=== PATIENT | female | born 1930 | race Caucasian/White ===

== ENCOUNTER 2016-11-02 20:13 | Observation (INO) | payer MEDICARE, BC ==
[~2016-11-02] VITALS: Ht 152.4 cm; Wt 58.8 kg
[2016-11-02] VITALS (36 sets, daily range): BP systolic 115; BP diastolic 50; PULSE 92; TEMP 98.4; O2SAT 88–94
[~2016-11-02 20:13] MED LIST: ACTIGALL 300MG300 MG PO; BONIVA PO; CALCIUM 600 + V1 TA1 PO; CALTRATE 600 +1 TAB PO; CYANOCOBAL1000 MCG/1 SQ; DIOVAN HCT 12.51 TA2 PO; DIOVAN80 M1 PO; ENTOCORT EC3 MG PO; FERROUS SU325 MG/TAB PO; FORTEO250 MCG/ML SC; ICAPS TABLET1 EACH PO; IMODIUM 2MG CAPS2 MG PO; LEVAQUIN 5500 MG/TA1 PO; LEVOTHYROXIN0.075 MG PO; MASON NATURAL2000 IU PO; MEDROL 4MG DOSPA4 MG PO; MERCAPTOPURINE50 MG PO; MULTIVITAMIN1 CTB PO; MVI PO; NORCO 325 MG-51 TAB PO; PRENATAL1 TA1 PO; PROBIOTIC FORMU1 CAP PO; SYNTHROID0.075 MG/T PO; TIMOLOL OPHTHALMIC OU; TYLENOL PM EXTR1 TA1 PO; URSO250 MG PO; VITAMIN B-1000 MCG/T PO; VITAMIN D 50,1.25 MG PO; VITAMIN D PO; VITAMIN D1000 IU PO; VITRON-C PO; [UNRECOGNIZED DRUG - OTHER] PO
[2016-11-02 20:40] LABS: BASO # 0.1 (0.0-0.2); EOS # 0.1 (0.0-0.7); GRAN # 8.2 (1.4-6.5); GRAN % 78.2 % (42.2-75.2); LYMPH # 1.4 (1.2-3.4); LYMPH % 12.9 % (20.0-51.0); MEAN CELL VOLUME 80 fl (80.0-100.0); MEAN CORPUSCULAR HGB CONC 32 g/dl (33.0-37.0); MEAN PLATELET VOLUME 9.1 fl (7.4-10.4); MONO # 0.7 (0.1-0.6); MONO % 6.4 % (1.7-9.3); PLATELET COUNT 478 K/mm3 (130-400); REDCELL DISTRIBUTION WIDTH-CV 14.3 % (11.5-14.5); WHITE BLOOD COUNT 10.5 K/mm3 (4.8-10.8)
[2016-11-02 20:49] LABS: ADJUSTED CALCIUM 9.8 mg/dL (8.4-10.2); ALBUMIN 3.3 gm/dL (3.5-5.0); BILIRUBIN,TOTAL 0.8 mg/dL (0.0-1.0); CALCIUM 9.2 mg/dL (8.4-10.2); CREATININE, serum 0.96 mg/dL (0.52-1.25); HEMATOCRIT 29.6 % (37.0-47.0); HEMOGLOBIN 9.5 g/dl (12.5-16.0); MEAN CORPUSCULAR HEMOGLOBIN 26 pg (27.0-31.0); POTASSIUM 3.8 mmol/L (3.4-5.0); TOTAL PROTEIN 6.7 gm/dL (6.4-8.2)
[2016-11-02 21:14] LABS: PH 6 (5-8); SQUAMOUS EPITHELIAL 0-2 /hpf; URINE APPEARANCE Hazy; URINE BACTERIA None Seen /hpf; URINE BILIRUBIN Negative (NEGATIVE); URINE BLOOD 1+ (NEGATIVE); URINE COLOR Yellow; URINE GLUCOSE Negative (NEGATIVE); URINE KETONE Trace (NEGATIVE); URINE UROBILINOGEN Negative (NEGATIVE); URINE WBC 0-2 /hpf
[2016-11-02] MEDS ORDERED: PURINETHOL 50MG50 MG PO (22:02)
[2016-11-02] MEDS ORDERED: B COMPLEX & B121 TAB PO (22:03)
[2016-11-02] MEDS ORDERED: ICAPS AREDS FO1 EACH PO (22:03)
[2016-11-02] MEDS ORDERED: DIOVAN 40MG40 MG PO (22:09)
[2016-11-03] VITALS (581 sets, daily range): BP systolic 103–134; BP diastolic 51–62; PULSE 71–84; TEMP 96.7–98.5; O2SAT 62–100
[2016-11-03 06:15] LABS: CALCIUM 8.5 mg/dL (8.4-10.2); CREATININE, serum 0.79 mg/dL (0.52-1.25); POTASSIUM 3.6 mmol/L (3.4-5.0)
[2017-01-09] MEDS ORDERED: TIMOLOL MALEATE5 M3 OU (14:49)
[2017-01-09] MEDS ORDERED: TIMOPTIC 0.25%-5 OU (14:49)
[2017-01-09] MEDS ORDERED: ENTOCORT EC3 MG PO (15:12)
[2017-02-06] MEDS ORDERED: CALTRATE 600 +1 TAB PO (15:00)
[2017-03-06] MEDS ORDERED: CARAFATE S1 GM/10 ML PO (13:44)
== END 2016-11-03 17:10 | disposition home or self-care (01) ==
LOC: COL.ER 20:13 → IMCU 22:24 → MEDICAL 11-03 14:14
PROVIDERS: Emergency Medicine; Nurse Practitioner Family
DX: E87.1 Hypo-osmolality and hyponatremia (principal); E86.0 Dehydration; N39.0 Urinary tract infection, site not specified; D47.3 Essential (hemorrhagic) thrombocythemia; I95.9 Hypotension, unspecified; K50.90 Crohn's disease, unspecified, without complications; E03.9 Hypothyroidism, unspecified; Z85.42 Personal history of malignant neoplasm of other parts of uterus
CPT/HCPCS: G0378; J7030; Q9967

== ENCOUNTER 2016-11-12 13:00 | Outpatient (RCR) | payer MEDICARE, BC ==
[2016-09-09 13:18] LABS: BASO # 0.1 (0.0-0.2); BASO % 1.2 % (0.0-2.0); EOS # 0.2 (0.0-0.7); EOS % 3.1 % (0-4.0); GRAN # 3.8 (1.4-6.5); HEMATOCRIT 31.4 % (37.0-47.0); HEMOGLOBIN 9.8 g/dl (12.5-16.0); LYMPH # 1.5 (1.2-3.4); MEAN CELL VOLUME 89 fl (80.0-100.0); MEAN CORPUSCULAR HEMOGLOBIN 28 pg (27.0-31.0); MEAN CORPUSCULAR HGB CONC 31 g/dl (33.0-37.0); MEAN PLATELET VOLUME 9.3 fl (7.4-10.4); MONO # 0.5 (0.1-0.6); MONO % 8.4 % (1.7-9.3); PLATELET COUNT 345 K/mm3 (130-400); RED BLOOD COUNT 3.53 M/mm3 (4.10-5.30); REDCELL DISTRIBUTION WIDTH-CV 14.3 % (11.5-14.5); WHITE BLOOD COUNT 6.1 K/mm3 (4.8-10.8)
[2016-09-09 13:27] LABS: ALBUMIN 3.3 gm/dL (3.5-5.0); BILIRUBIN,TOTAL 0.7 mg/dL (0.0-1.0); CALCIUM 9.4 mg/dL (8.4-10.2); CREATININE, serum 0.91 mg/dL (0.52-1.25); POTASSIUM 3.9 mmol/L (3.4-5.0); TOTAL PROTEIN 6.1 gm/dL (6.4-8.2)
[2016-09-09 13:37] VITALS: BP 11/57; PULSE 72; TEMP 97.6
[~2016-11-12] VITALS: Ht 154.9 cm; Wt 55.0 kg
[~2016-11-12 13:00] MED LIST changes: +B COMPLEX & B121 TAB PO; +DIOVAN 40MG40 MG PO; +ICAPS AREDS FO1 EACH PO; +PURINETHOL 50MG50 MG PO
[2016-11-12 13:32] LABS: BASO # 0.1 (0.0-0.2); BASO % 1.1 % (0.0-2.0); EOS # 0.5 (0.0-0.7); GRAN # 4.3 (1.4-6.5); GRAN % 67.1 % (42.2-75.2); LYMPH % 16.1 % (20.0-51.0); MEAN CELL VOLUME 82 fl (80.0-100.0); MEAN CORPUSCULAR HGB CONC 30 g/dl (33.0-37.0); MEAN PLATELET VOLUME 8.7 fl (7.4-10.4); MONO # 0.5 (0.1-0.6); MONO % 7.4 % (1.7-9.3); PLATELET COUNT 529 K/mm3 (130-400); RED BLOOD COUNT 3.67 M/mm3 (4.10-5.30); REDCELL DISTRIBUTION WIDTH-CV 15.6 % (11.5-14.5); WHITE BLOOD COUNT 6.4 K/mm3 (4.8-10.8)
[2016-11-12 13:33] LABS: HEMATOCRIT 29.9 % (37.0-47.0); HEMOGLOBIN 9.1 g/dl (12.5-16.0); MEAN CORPUSCULAR HEMOGLOBIN 25 pg (27.0-31.0)
[2016-11-12 13:55] LABS: ADJUSTED CALCIUM 10.2 mg/dL (8.4-10.2); ALBUMIN 3.2 gm/dL (3.5-5.0); BILIRUBIN,TOTAL 0.5 mg/dL (0.0-1.0); CALCIUM 9.6 mg/dL (8.4-10.2); CREATININE, serum 0.86 mg/dL (0.52-1.25); TOTAL PROTEIN 6.5 gm/dL (6.4-8.2)
[2016-11-12 14:21] VITALS: BP 124/60; PULSE 91; TEMP 98.2
[2017-01-09] MEDS ORDERED: TIMOPTIC 0.25%-5 OU (14:49)
[2017-01-09] MEDS ORDERED: TIMOLOL MALEATE5 M3 OU (14:49)
[2017-01-09] MEDS ORDERED: ENTOCORT EC3 MG PO (15:12)
[2017-02-06] MEDS ORDERED: CALTRATE 600 +1 TAB PO (15:00)
[2017-03-06] MEDS ORDERED: CARAFATE S1 GM/10 ML PO (13:44)
== END 2016-12-08 | disposition home or self-care (01) ==
LOC: EUO
PROVIDERS: Family Medicine; Internal Medicine
DX: K50.118 Crohn's disease of large intestine with other complication (principal)
CPT/HCPCS: J2920; J3380; J7050

== ENCOUNTER → 2017-01-24 | Outpatient (CLI) | payer MEDICARE, BC ==
[~2017-01-24] MED LIST changes: +CARAFATE S1 GM/10 ML PO; +PROTONIX20 MG PO; +TIMOLOL MALEATE5 M3 OU; +TIMOPTIC 0.25%-5 OU
== END ==
LOC: COL.RAD 07:20
DX: K76.89 Other specified diseases of liver (principal); R10.84 Generalized abdominal pain

== ENCOUNTER 2017-04-03 13:00 | Outpatient (RCR) | payer MEDICARE, BC ==
[2017-01-09 14:43] LABS: BASO # 0.1 (0.0-0.2); BASO % 1.2 % (0.0-2.0); EOS # 0.4 (0.0-0.7); EOS % 3.9 % (0-4.0); GRAN # 7.4 (1.4-6.5); GRAN % 77.9 % (42.2-75.2); HEMOGLOBIN 12.9 g/dl (12.5-16.0); LYMPH # 0.9 (1.2-3.4); LYMPH % 9.2 % (20.0-51.0); MEAN CELL VOLUME 86 fl (80.0-100.0); MEAN CORPUSCULAR HEMOGLOBIN 28 pg (27.0-31.0); MEAN CORPUSCULAR HGB CONC 32 g/dl (33.0-37.0); MEAN PLATELET VOLUME 9.6 fl (7.4-10.4); MONO # 0.7 (0.1-0.6); MONO % 7.6 % (1.7-9.3); PLATELET COUNT 316 K/mm3 (130-400); RED BLOOD COUNT 4.65 M/mm3 (4.10-5.30); REDCELL DISTRIBUTION WIDTH-CV 20.6 % (11.5-14.5); WHITE BLOOD COUNT 9.5 K/mm3 (4.8-10.8)
[2017-01-09 14:53] LABS: ADJUSTED CALCIUM 8.4 mg/dL (8.4-10.2); ALBUMIN 3.9 gm/dL (3.5-5.0); AMYLASE 59 U/L (30-110); BILIRUBIN,TOTAL 0.7 mg/dL (0.0-1.0); CALCIUM 8.3 mg/dL (8.4-10.2); CREATININE, serum 0.67 mg/dL (0.52-1.25); LIPASE 48 U/L (23-300); POTASSIUM 3.7 mmol/L (3.4-5.0); TOTAL PROTEIN 7.1 gm/dL (6.4-8.2)
[2017-01-09 15:45] VITALS: BP 134/59; PULSE 68; TEMP 98.2
[2017-01-09 16:20] VITALS: BP 151/56; PULSE 69; TEMP 97.8
[2017-02-06 14:30] VITALS: BP 123/51; PULSE 64; TEMP 98.3
[2017-02-06 14:49] LABS: BASO # 0.1 (0.0-0.2); BASO % 1.7 % (0.0-2.0); EOS # 0.4 (0.0-0.7); EOS % 6.3 % (0-4.0); GRAN # 3.8 (1.4-6.5); GRAN % 62.8 % (42.2-75.2); HEMATOCRIT 39.9 % (37.0-47.0); LYMPH # 1.2 (1.2-3.4); LYMPH % 19.2 % (20.0-51.0); MEAN CELL VOLUME 87 fl (80.0-100.0); MEAN CORPUSCULAR HEMOGLOBIN 28 pg (27.0-31.0); MEAN CORPUSCULAR HGB CONC 33 g/dl (33.0-37.0); MEAN PLATELET VOLUME 9.8 fl (7.4-10.4); MONO # 0.6 (0.1-0.6); MONO % 9.8 % (1.7-9.3); PLATELET COUNT 319 K/mm3 (130-400); RED BLOOD COUNT 4.59 M/mm3 (4.10-5.30); REDCELL DISTRIBUTION WIDTH-CV 18.9 % (11.5-14.5); WHITE BLOOD COUNT 6.1 K/mm3 (4.8-10.8)
[2017-02-06 14:58] LABS: ADJUSTED CALCIUM 8.9 mg/dL (8.4-10.2); ALBUMIN 3.6 gm/dL (3.5-5.0); BILIRUBIN,TOTAL 0.7 mg/dL (0.0-1.0); CALCIUM 8.6 mg/dL (8.4-10.2); CREATININE, serum 0.68 mg/dL (0.52-1.25); POTASSIUM 3.8 mmol/L (3.4-5.0); TOTAL PROTEIN 6.3 gm/dL (6.4-8.2)
[2017-03-06 13:32] LABS: BASO # 0.1 (0.0-0.2); BASO % 1.8 % (0.0-2.0); EOS # 0.3 (0.0-0.7); EOS % 4.9 % (0-4.0); GRAN # 3.8 (1.4-6.5); GRAN % 62.4 % (42.2-75.2); HEMATOCRIT 38.8 % (37.0-47.0); HEMOGLOBIN 12.6 g/dl (12.5-16.0); LYMPH # 1.3 (1.2-3.4); LYMPH % 21.4 % (20.0-51.0); MEAN CELL VOLUME 87 fl (80.0-100.0); MEAN CORPUSCULAR HEMOGLOBIN 28 pg (27.0-31.0); MEAN CORPUSCULAR HGB CONC 33 g/dl (33.0-37.0); MEAN PLATELET VOLUME 9.5 fl (7.4-10.4); MONO # 0.6 (0.1-0.6); MONO % 9.2 % (1.7-9.3); PLATELET COUNT 305 K/mm3 (130-400); RED BLOOD COUNT 4.44 M/mm3 (4.10-5.30); REDCELL DISTRIBUTION WIDTH-CV 15.6 % (11.5-14.5); WHITE BLOOD COUNT 6.1 K/mm3 (4.8-10.8)
[2017-03-06 14:18] LABS: ADJUSTED CALCIUM 9.5 mg/dL (8.4-10.2); ALBUMIN 3.7 gm/dL (3.5-5.0); BILIRUBIN,TOTAL 0.7 mg/dL (0.0-1.0); CALCIUM 9.3 mg/dL (8.4-10.2); CREATININE, serum 0.67 mg/dL (0.52-1.25); POTASSIUM 4.1 mmol/L (3.4-5.0); TOTAL PROTEIN 6.3 gm/dL (6.4-8.2)
[2017-03-06 14:48] VITALS: BP 128/54; PULSE 65; TEMP 98.4
[~2017-04-03] VITALS: Ht 154.9 cm; Wt 53.0 kg
[~2017-04-03 13:00] MED LIST changes: -PROTONIX20 MG PO
[2017-04-03 13:20] VITALS: BP 131/54; PULSE 71; TEMP 98.4
[2017-04-03 13:49] LABS: BASO # 0.1 (0.0-0.2); BASO % 1.2 % (0.0-2.0); EOS # 0.4 (0.0-0.7); EOS % 5.9 % (0-4.0); GRAN # 4.1 (1.4-6.5); GRAN % 63.5 % (42.2-75.2); LYMPH # 1.2 (1.2-3.4); LYMPH % 19.3 % (20.0-51.0); MEAN CELL VOLUME 89 fl (80.0-100.0); MEAN CORPUSCULAR HEMOGLOBIN 29 pg (27.0-31.0); MEAN CORPUSCULAR HGB CONC 32 g/dl (33.0-37.0); MEAN PLATELET VOLUME 9.8 fl (7.4-10.4); MONO # 0.6 (0.1-0.6); MONO % 9.8 % (1.7-9.3); PLATELET COUNT 310 K/mm3 (130-400); RED BLOOD COUNT 4.15 M/mm3 (4.10-5.30); REDCELL DISTRIBUTION WIDTH-CV 13.5 % (11.5-14.5); WHITE BLOOD COUNT 6.4 K/mm3 (4.8-10.8)
[2017-04-03 13:51] LABS: HEMOGLOBIN 11.9 g/dl (12.5-16.0)
[2017-04-03 14:00] LABS: ADJUSTED CALCIUM 9.8 mg/dL (8.4-10.2); ALBUMIN 3.4 gm/dL (3.5-5.0); BILIRUBIN,TOTAL 0.9 mg/dL (0.0-1.0); CALCIUM 9.3 mg/dL (8.4-10.2); CREATININE, serum 0.73 mg/dL (0.52-1.25); POTASSIUM 4.1 mmol/L (3.4-5.0); TOTAL PROTEIN 5.9 gm/dL (6.4-8.2)
== END 2017-04-03 15:30 | disposition home or self-care (01) ==
LOC: EUO 13:00
PROVIDERS: Family Medicine
DX: R10.13 Epigastric pain (principal)
CPT/HCPCS: J2920; J3380; J7050

== ENCOUNTER 2017-04-30 13:59 | Outpatient (CLI) | payer MEDICARE, BC ==
[~2017-04-30] VITALS: Ht 154.9 cm; Wt 54.0 kg
[2017-04-30 13:11] VITALS: BP 134/64; PULSE 71; TEMP 97.4
[2017-04-30 13:27] LABS: BASO # 0.1 (0.0-0.2); BASO % 1.4 % (0.0-2.0); EOS # 0.5 (0.0-0.7); GRAN # 3.6 (1.4-6.5); GRAN % 61.2 % (42.2-75.2); HEMATOCRIT 36.1 % (37.0-47.0); HEMOGLOBIN 11.7 g/dl (12.5-16.0); LYMPH # 1.2 (1.2-3.4); MEAN CELL VOLUME 88 fl (80.0-100.0); MEAN CORPUSCULAR HEMOGLOBIN 28 pg (27.0-31.0); MEAN CORPUSCULAR HGB CONC 32 g/dl (33.0-37.0); MONO # 0.5 (0.1-0.6); MONO % 9.2 % (1.7-9.3); PLATELET COUNT 290 K/mm3 (130-400); RED BLOOD COUNT 4.11 M/mm3 (4.10-5.30); REDCELL DISTRIBUTION WIDTH-CV 13.2 % (11.5-14.5); WHITE BLOOD COUNT 5.8 K/mm3 (4.8-10.8)
[2017-04-30 13:36] LABS: ADJUSTED CALCIUM 10.3 mg/dL (8.4-10.2); ALBUMIN 3.4 gm/dL (3.5-5.0); BILIRUBIN,TOTAL 0.6 mg/dL (0.0-1.0); CALCIUM 9.8 mg/dL (8.4-10.2); CREATININE, serum 0.78 mg/dL (0.52-1.25); POTASSIUM 4.1 mmol/L (3.4-5.0); TOTAL PROTEIN 6.2 gm/dL (6.4-8.2)
== END 2017-04-30 16:00 | disposition home or self-care (01) ==
LOC: EUO 13:59
PROVIDERS: Family Medicine
DX: K50.90 Crohn's disease, unspecified, without complications (principal)
CPT/HCPCS: J2920; J3380; J7050

== ENCOUNTER 2017-05-29 13:56 | Outpatient (CLI) | payer MEDICARE, BC ==
[~2017-05-29] VITALS: Ht 154.9 cm; Wt 53.6 kg
[2017-05-29 14:36] LABS: HEMATOCRIT 38.2 % (37.0-47.0); HEMOGLOBIN 12.4 g/dl (12.5-16.0); MEAN CELL VOLUME 87 fl (80.0-100.0); MEAN CORPUSCULAR HEMOGLOBIN 28 pg (27.0-31.0); MEAN CORPUSCULAR HGB CONC 33 g/dl (33.0-37.0); MEAN PLATELET VOLUME 10.2 fl (7.4-10.4); PLATELET COUNT 271 K/mm3 (130-400); RED BLOOD COUNT 4.37 M/mm3 (4.10-5.30); REDCELL DISTRIBUTION WIDTH-CV 13.7 % (11.5-14.5); WHITE BLOOD COUNT 6.1 K/mm3 (4.8-10.8)
[2017-05-29 14:47] LABS: ADJUSTED CALCIUM 9.8 mg/dL (8.4-10.2); ALBUMIN 3.5 gm/dL (3.5-5.0); BILIRUBIN,TOTAL 0.7 mg/dL (0.0-1.0); CALCIUM 9.4 mg/dL (8.4-10.2); CREATININE, serum 0.76 mg/dL (0.52-1.25); POTASSIUM 4.3 mmol/L (3.4-5.0); TOTAL PROTEIN 6.3 gm/dL (6.4-8.2)
[2017-05-29 15:30] VITALS: BP 120/49; PULSE 56; TEMP 98.2
== END 2017-05-29 17:11 | disposition home or self-care (01) ==
LOC: EUO 13:56
PROVIDERS: Family Medicine
DX: K50.90 Crohn's disease, unspecified, without complications (principal); Z79.899 Other long term (current) drug therapy
CPT/HCPCS: J2920; J3380; J7050

== ENCOUNTER → 2017-06-02 | Outpatient (CLI) | payer MEDICARE, BC ==
[~2017-06-02] MED LIST changes: +PROTONIX20 MG PO
== END ==
LOC: MC.RAD 14:20
DX: Z12.31 Encounter for screening mammogram for malignant neoplasm of breast (principal); Z98.890 Other specified postprocedural states

== ENCOUNTER 2017-06-26 13:57 | Outpatient (CLI) | payer MEDICARE, BC ==
[~2017-06-26] VITALS: Ht 154.9 cm; Wt 55.5 kg
[~2017-06-26 13:57] MED LIST changes: -PROTONIX20 MG PO
[2017-06-26 14:55] LABS: ALBUMIN 3.4 gm/dL (3.5-5.0); BILIRUBIN,TOTAL 0.8 mg/dL (0.0-1.0); CREATININE, serum 0.82 mg/dL (0.52-1.25); TOTAL PROTEIN 6.1 gm/dL (6.4-8.2)
[2017-06-26 15:00] LABS: BASO # 0.1 (0.0-0.2); BASO % 1.4 % (0.0-2.0); EOS # 0.5 (0.0-0.7); EOS % 8.4 % (0-4.0); GRAN # 3.1 (1.4-6.5); GRAN % 53.6 % (42.2-75.2); LYMPH # 1.6 (1.2-3.4); LYMPH % 26.7 % (20.0-51.0); MEAN CELL VOLUME 87 fl (80.0-100.0); MEAN CORPUSCULAR HGB CONC 32 g/dl (33.0-37.0); MEAN PLATELET VOLUME 10.2 fl (7.4-10.4); MONO # 0.6 (0.1-0.6); MONO % 9.7 % (1.7-9.3); PLATELET COUNT 302 K/mm3 (130-400); RED BLOOD COUNT 4.18 M/mm3 (4.10-5.30); WHITE BLOOD COUNT 5.9 K/mm3 (4.8-10.8)
[2017-06-26 15:05] LABS: HEMATOCRIT 36.3 % (37.0-47.0); HEMOGLOBIN 11.7 g/dl (12.5-16.0); MEAN CORPUSCULAR HEMOGLOBIN 28 pg (27.0-31.0)
[2017-06-26 15:08] LABS: ADJUSTED CALCIUM 9.8 mg/dL (8.4-10.2); CALCIUM 9.3 mg/dL (8.4-10.2)
[2017-06-26] MEDS ORDERED: PROTONIX20 MG PO (15:15)
[2017-06-26 15:46] VITALS: BP 129/50; PULSE 61; TEMP 97.2
== END 2017-06-26 16:50 | disposition home or self-care (01) ==
LOC: EUO 13:57
PROVIDERS: Family Medicine
DX: K50.90 Crohn's disease, unspecified, without complications (principal); Z79.899 Other long term (current) drug therapy
CPT/HCPCS: J2920; J3380; J7050

== ENCOUNTER → 2017-07-04 | Outpatient (CLI) | payer MEDICARE, BC ==
[~2017-07-04] MED LIST changes: +PROTONIX20 MG PO
== END ==
LOC: COL.RAD 08:06
DX: K82.8 Other specified diseases of gallbladder (principal)
CPT/HCPCS: A9537

== ENCOUNTER 2017-07-23 14:18 | Outpatient (CLI) | payer MEDICARE, BC ==
[~2017-07-23] VITALS: Ht 154.9 cm; Wt 56.0 kg
[2017-07-23 15:05] LABS: BASO # 0.1 (0.0-0.2); BASO % 1.5 % (0.0-2.0); EOS # 0.5 (0.0-0.7); EOS % 7.7 % (0-4.0); GRAN # 3.4 (1.4-6.5); GRAN % 56.9 % (42.2-75.2); HEMATOCRIT 38.5 % (37.0-47.0); HEMOGLOBIN 12.5 g/dl (12.5-16.0); LYMPH # 1.5 (1.2-3.4); LYMPH % 24.3 % (20.0-51.0); MEAN CELL VOLUME 88 fl (80.0-100.0); MEAN CORPUSCULAR HEMOGLOBIN 29 pg (27.0-31.0); MEAN CORPUSCULAR HGB CONC 33 g/dl (33.0-37.0); MEAN PLATELET VOLUME 10.1 fl (7.4-10.4); MONO # 0.6 (0.1-0.6); MONO % 9.4 % (1.7-9.3); PLATELET COUNT 292 K/mm3 (130-400); RED BLOOD COUNT 4.38 M/mm3 (4.10-5.30); REDCELL DISTRIBUTION WIDTH-CV 14.1 % (11.5-14.5)
[2017-07-23 15:14] LABS: ADJUSTED CALCIUM 9.5 mg/dL (8.4-10.2); ALBUMIN 3.7 gm/dL (3.5-5.0); BILIRUBIN,TOTAL 0.5 mg/dL (0.0-1.0); CALCIUM 9.3 mg/dL (8.4-10.2); CREATININE, serum 0.82 mg/dL (0.52-1.25); POTASSIUM 4.2 mmol/L (3.4-5.0); TOTAL PROTEIN 6.6 gm/dL (6.4-8.2)
[2017-07-23 15:55] VITALS: BP 142/60; PULSE 63; TEMP 98.1
== END 2017-07-23 16:59 | disposition home or self-care (01) ==
LOC: EUO 14:18
PROVIDERS: Family Medicine
DX: K50.90 Crohn's disease, unspecified, without complications (principal); Z79.899 Other long term (current) drug therapy
CPT/HCPCS: J2920; J3380; J7050

== ENCOUNTER 2017-08-20 14:03 | Outpatient (CLI) | payer MEDICARE, BC ==
[~2017-08-20] VITALS: Ht 154.9 cm; Wt 56.3 kg
[2017-08-20 14:26] LABS: BASO # 0.1 (0.0-0.2); BASO % 1.6 % (0.0-2.0); EOS # 0.4 (0.0-0.7); EOS % 5.2 % (0-4.0); GRAN # 4.2 (1.4-6.5); GRAN % 61.3 % (42.2-75.2); HEMATOCRIT 39.5 % (37.0-47.0); HEMOGLOBIN 12.6 g/dl (12.5-16.0); LYMPH # 1.6 (1.2-3.4); LYMPH % 23.4 % (20.0-51.0); MEAN CELL VOLUME 88 fl (80.0-100.0); MEAN CORPUSCULAR HEMOGLOBIN 28 pg (27.0-31.0); MEAN CORPUSCULAR HGB CONC 32 g/dl (33.0-37.0); MONO # 0.6 (0.1-0.6); MONO % 8.4 % (1.7-9.3); PLATELET COUNT 345 K/mm3 (130-400); RED BLOOD COUNT 4.48 M/mm3 (4.10-5.30); WHITE BLOOD COUNT 6.8 K/mm3 (4.8-10.8)
[2017-08-20 14:34] LABS: ADJUSTED CALCIUM 10.1 mg/dL (8.4-10.2); ALBUMIN 3.7 gm/dL (3.5-5.0); BILIRUBIN,TOTAL 0.6 mg/dL (0.0-1.0); CALCIUM 9.9 mg/dL (8.4-10.2); CREATININE, serum 0.86 mg/dL (0.52-1.25); POTASSIUM 4.4 mmol/L (3.4-5.0); TOTAL PROTEIN 6.6 gm/dL (6.4-8.2)
[2017-08-20 15:15] VITALS: BP 131/65; PULSE 65; TEMP 98.3
== END 2017-08-20 17:00 | disposition home or self-care (01) ==
LOC: EUO 14:03
PROVIDERS: Family Medicine
DX: K50.90 Crohn's disease, unspecified, without complications (principal); Z79.899 Other long term (current) drug therapy
CPT/HCPCS: J2920; J3380; J7050

== ENCOUNTER → 2017-09-17 | Outpatient (CLI) | payer MEDICARE, BC ==
[~2017-09-17] VITALS: Ht 154.9 cm; Wt 56.3 kg
[2017-09-17 14:36] LABS: BASO # 0.1 (0.0-0.2); BASO % 1.5 % (0.0-2.0); EOS # 0.4 (0.0-0.7); EOS % 5.4 % (0-4.0); GRAN # 4.4 (1.4-6.5); GRAN % 63.9 % (42.2-75.2); HEMATOCRIT 37.4 % (37.0-47.0); HEMOGLOBIN 12.2 g/dl (12.5-16.0); LYMPH # 1.5 (1.2-3.4); LYMPH % 21.4 % (20.0-51.0); MEAN CELL VOLUME 89 fl (80.0-100.0); MEAN CORPUSCULAR HEMOGLOBIN 29 pg (27.0-31.0); MEAN CORPUSCULAR HGB CONC 33 g/dl (33.0-37.0); MEAN PLATELET VOLUME 9.7 fl (7.4-10.4); MONO # 0.5 (0.1-0.6); MONO % 7.7 % (1.7-9.3); PLATELET COUNT 333 K/mm3 (130-400); RED BLOOD COUNT 4.21 M/mm3 (4.10-5.30); WHITE BLOOD COUNT 6.9 K/mm3 (4.8-10.8)
[2017-09-17 15:01] LABS: ADJUSTED CALCIUM 10.1 mg/dL (8.4-10.2); ALBUMIN 3.7 gm/dL (3.5-5.0); BILIRUBIN,TOTAL 0.6 mg/dL (0.0-1.0); CALCIUM 9.9 mg/dL (8.4-10.2); CREATININE, serum 0.8 mg/dL (0.52-1.25); POTASSIUM 4.2 mmol/L (3.4-5.0); TOTAL PROTEIN 6.5 gm/dL (6.4-8.2)
[2017-09-17 15:50] VITALS: BP 131/57; PULSE 66; TEMP 99.4
== END ==
LOC: EUO 13:56
PROVIDERS: Family Medicine
DX: K50.118 Crohn's disease of large intestine with other complication (principal); Z79.899 Other long term (current) drug therapy
CPT/HCPCS: J2920; J3380; J7050

== ENCOUNTER 2017-10-15 14:01 | Outpatient (CLI) | payer MEDICARE, BC ==
[~2017-10-15] VITALS: Ht 154.9 cm; Wt 56.0 kg
[2017-10-15 14:17] LABS: ADD PATHOLOGY DIFF REVIEW NO
[2017-10-15 14:20] LABS: HEMATOCRIT 39.3 % (37.0-47.0); HEMOGLOBIN 12.5 g/dl (12.5-16.0); MEAN CELL VOLUME 92 fl (80.0-100.0); MEAN CORPUSCULAR HEMOGLOBIN 29 pg (27.0-31.0); MEAN CORPUSCULAR HGB CONC 32 g/dl (33.0-37.0); MEAN PLATELET VOLUME 9.8 fl (7.4-10.4); PLATELET COUNT 294 K/mm3 (130-400); RED BLOOD COUNT 4.27 M/mm3 (4.10-5.30)
[2017-10-15 14:29] LABS: ALBUMIN 3.8 gm/dL (3.5-5.0); BILIRUBIN,TOTAL 0.3 mg/dL (0.0-1.0); CALCIUM 9.8 mg/dL (8.4-10.2); CREATININE, serum 0.82 mg/dL (0.52-1.25); POTASSIUM 4.3 mmol/L (3.4-5.0); TOTAL PROTEIN 6.6 gm/dL (6.4-8.2)
[2017-10-15 14:58] LABS: BAND 3 % (0-10); EOSINOPHIL 9 % (0-4); LYMPHOCYTE 25 % (20.0-51.0); MYELOCYTE 1 % (0-0); NEUTROPHILS 53 % (42.0-75.2); TOTAL CELLS COUNTED 100
[2017-10-15 14:59] LABS: PLATELET ESTIMATE NORMAL (NORMAL)
[2017-10-15 15:54] VITALS: BP 127/55; PULSE 64; TEMP 97.8
== END 2017-10-15 16:56 | disposition home or self-care (01) ==
LOC: EUO 14:01
PROVIDERS: Family Medicine
DX: K50.90 Crohn's disease, unspecified, without complications (principal); Z79.899 Other long term (current) drug therapy
CPT/HCPCS: J2920; J3380; J7050

== ENCOUNTER 2017-11-12 14:23 | Outpatient (CLI) | payer MEDICARE, BC ==
[~2017-11-12] VITALS: Ht 154.9 cm; Wt 56.4 kg
[2017-11-12 14:51] LABS: BASO # 0.1 (0.0-0.2); BASO % 1.9 % (0.0-2.0); EOS # 0.5 (0.0-0.7); EOS % 7.6 % (0-4.0); GRAN # 3.3 (1.4-6.5); GRAN % 56.2 % (42.2-75.2); HEMATOCRIT 37.4 % (37.0-47.0); LYMPH # 1.5 (1.2-3.4); LYMPH % 26.1 % (20.0-51.0); MEAN CELL VOLUME 91 fl (80.0-100.0); MEAN CORPUSCULAR HEMOGLOBIN 29 pg (27.0-31.0); MEAN CORPUSCULAR HGB CONC 32 g/dl (33.0-37.0); MONO # 0.5 (0.1-0.6); PLATELET COUNT 280 K/mm3 (130-400); RED BLOOD COUNT 4.13 M/mm3 (4.10-5.30); REDCELL DISTRIBUTION WIDTH-CV 13.8 % (11.5-14.5)
[2017-11-12 14:57] LABS: ALBUMIN 3.4 gm/dL (3.5-5.0); BILIRUBIN,TOTAL 0.5 mg/dL (0.0-1.0); CALCIUM 9.6 mg/dL (8.4-10.2); CREATININE, serum 0.87 mg/dL (0.52-1.25); POTASSIUM 4.1 mmol/L (3.4-5.0); TOTAL PROTEIN 6.1 gm/dL (6.4-8.2)
[2017-11-12 16:43] VITALS: BP 131/78; PULSE 59; TEMP 97.3
== END 2017-11-12 17:17 | disposition home or self-care (01) ==
LOC: EUO 14:23
PROVIDERS: Family Medicine
DX: K50.90 Crohn's disease, unspecified, without complications (principal)
CPT/HCPCS: J2920; J3380; J7050

== ENCOUNTER 2017-12-10 13:24 | Outpatient (CLI) | payer MEDICARE, BC ==
[~2017-12-10] VITALS: Ht 154.9 cm; Wt 57.0 kg
[2017-12-10 14:30] LABS: HEMATOCRIT 38.5 % (37.0-47.0); HEMOGLOBIN 12.7 g/dl (12.5-16.0); MEAN CELL VOLUME 90 fl (80.0-100.0); MEAN CORPUSCULAR HEMOGLOBIN 30 pg (27.0-31.0); MEAN CORPUSCULAR HGB CONC 33 g/dl (33.0-37.0); MEAN PLATELET VOLUME 10.2 fl (7.4-10.4); PLATELET COUNT 286 K/mm3 (130-400); REDCELL DISTRIBUTION WIDTH-CV 13.6 % (11.5-14.5)
[2017-12-10 14:54] LABS: BAND 2 % (0-10); BASOPHIL 1 % (0-2); EOSINOPHIL 9 % (0-4); LYMPHOCYTE 27 % (20.0-51.0); NEUTROPHILS 54 % (42.0-75.2)
[2017-12-10 14:55] LABS: PLATELET ESTIMATE NORMAL (NORMAL)
[2017-12-10 15:06] VITALS: BP 141/56; PULSE 64; TEMP 98.2
[2017-12-10 15:13] LABS: ALBUMIN 3.5 gm/dL (3.5-5.0); BILIRUBIN,TOTAL 0.4 mg/dL (0.0-1.0); CALCIUM 9.7 mg/dL (8.4-10.2); CREATININE, serum 0.77 mg/dL (0.52-1.25); POTASSIUM 4.1 mmol/L (3.4-5.0); TOTAL PROTEIN 6.2 gm/dL (6.4-8.2)
== END 2017-12-10 15:59 | disposition home or self-care (01) ==
LOC: EUO 13:24
PROVIDERS: Family Medicine
DX: K50.90 Crohn's disease, unspecified, without complications (principal)
CPT/HCPCS: J2920; J3380; J7050

== ENCOUNTER 2018-01-07 13:19 | Outpatient (CLI) | payer MEDICARE, BC ==
[~2018-01-07] VITALS: Ht 154.9 cm; Wt 57.0 kg
[2018-01-07 13:56] LABS: BASO # 0.1 (0.0-0.2); BASO % 1.4 % (0.0-2.0); EOS # 0.3 (0.0-0.7); EOS % 4.5 % (0-4.0); GRAN # 4.4 (1.4-6.5); HEMATOCRIT 38.4 % (37.0-47.0); HEMOGLOBIN 12.7 g/dl (12.5-16.0); LYMPH # 1.7 (1.2-3.4); LYMPH % 23.8 % (20.0-51.0); MEAN CELL VOLUME 89 fl (80.0-100.0); MEAN CORPUSCULAR HEMOGLOBIN 29 pg (27.0-31.0); MEAN CORPUSCULAR HGB CONC 33 g/dl (33.0-37.0); MEAN PLATELET VOLUME 9.6 fl (7.4-10.4); MONO # 0.7 (0.1-0.6); MONO % 9.2 % (1.7-9.3); PLATELET COUNT 292 K/mm3 (130-400); RED BLOOD COUNT 4.34 M/mm3 (4.10-5.30); REDCELL DISTRIBUTION WIDTH-CV 13.2 % (11.5-14.5)
[2018-01-07 14:08] LABS: ALBUMIN 3.6 gm/dL (3.5-5.0); BILIRUBIN,TOTAL 0.4 mg/dL (0.0-1.0); CALCIUM 9.1 mg/dL (8.4-10.2); CREATININE, serum 0.79 mg/dL (0.52-1.25); TOTAL PROTEIN 6.5 gm/dL (6.4-8.2)
[2018-01-07 14:49] VITALS: BP 139/56; PULSE 67; TEMP 97.4
== END 2018-01-07 17:03 | disposition home or self-care (01) ==
LOC: EUO 13:19
PROVIDERS: Family Medicine
DX: K50.90 Crohn's disease, unspecified, without complications (principal)
CPT/HCPCS: J2920; J3380; J7050

== ENCOUNTER 2018-03-18 09:51 | Outpatient (CLI) | payer MEDICARE, BC ==
[~2018-03-18] VITALS: Ht 154.9 cm; Wt 57.6 kg
[2018-03-18 10:14] VITALS: BP 110/58; PULSE 68; TEMP 98.2
[2018-03-18 10:19] LABS: BASO # 0.1 (0.0-0.2); BASO % 1.3 % (0.0-2.0); EOS # 0.6 (0.0-0.7); GRAN # 5.7 (1.4-6.5); HEMATOCRIT 39.2 % (37.0-47.0); HEMOGLOBIN 13.1 g/dl (12.5-16.0); LYMPH # 1.5 (1.2-3.4); LYMPH % 17.9 % (20.0-51.0); MEAN CELL VOLUME 87 fl (80.0-100.0); MEAN CORPUSCULAR HEMOGLOBIN 29 pg (27.0-31.0); MEAN CORPUSCULAR HGB CONC 33 g/dl (33.0-37.0); MEAN PLATELET VOLUME 9.9 fl (7.4-10.4); MONO # 0.6 (0.1-0.6); MONO % 6.7 % (1.7-9.3); PLATELET COUNT 304 K/mm3 (130-400); RED BLOOD COUNT 4.53 M/mm3 (4.10-5.30); REDCELL DISTRIBUTION WIDTH-CV 13.4 % (11.5-14.5)
[2018-03-18 10:32] LABS: ALBUMIN 3.3 gm/dL (3.5-5.0); BILIRUBIN,TOTAL 0.5 mg/dL (0.0-1.0); CALCIUM 9.6 mg/dL (8.4-10.2); CREATININE, serum 0.82 mg/dL (0.52-1.25); TOTAL PROTEIN 6.2 gm/dL (6.4-8.2)
== END 2018-03-18 11:54 | disposition home or self-care (01) ==
LOC: EUO 09:51
PROVIDERS: Family Medicine
DX: K50.90 Crohn's disease, unspecified, without complications (principal); Z79.899 Other long term (current) drug therapy
CPT/HCPCS: J2920; J3380; J7050

== ENCOUNTER 2018-04-28 13:07 | Outpatient (CLI) | payer MEDICARE, BC ==
[~2018-04-28] VITALS: Ht 154.9 cm; Wt 58.0 kg
[2018-04-28 13:28] LABS: BASO # 0.1 (0.0-0.2); BASO % 1.4 % (0.0-2.0); EOS # 0.6 (0.0-0.7); EOS % 8.3 % (0-4.0); GRAN # 3.9 (1.4-6.5); GRAN % 59.1 % (42.2-75.2); HEMATOCRIT 39.5 % (37.0-47.0); HEMOGLOBIN 12.6 g/dl (12.5-16.0); LYMPH # 1.6 (1.2-3.4); MEAN CELL VOLUME 89 fl (80.0-100.0); MEAN CORPUSCULAR HEMOGLOBIN 28 pg (27.0-31.0); MEAN CORPUSCULAR HGB CONC 32 g/dl (33.0-37.0); MEAN PLATELET VOLUME 10.2 fl (7.4-10.4); MONO # 0.5 (0.1-0.6); PLATELET COUNT 277 K/mm3 (130-400); RED BLOOD COUNT 4.46 M/mm3 (4.10-5.30); REDCELL DISTRIBUTION WIDTH-CV 14.1 % (11.5-14.5)
[2018-04-28 13:53] LABS: ALBUMIN 3.5 gm/dL (3.5-5.0); BILIRUBIN,TOTAL 0.5 mg/dL (0.0-1.0); CALCIUM 9.4 mg/dL (8.4-10.2); CREATININE, serum 0.8 mg/dL (0.52-1.25); POTASSIUM 4.2 mmol/L (3.4-5.0); TOTAL PROTEIN 6.3 gm/dL (6.4-8.2)
[2018-04-28 14:16] VITALS: BP 123/62; PULSE 65; TEMP 98.3
== END 2018-04-28 16:10 | disposition home or self-care (01) ==
LOC: EUO 13:07
PROVIDERS: Family Medicine
DX: K50.90 Crohn's disease, unspecified, without complications (principal); Z79.899 Other long term (current) drug therapy
CPT/HCPCS: J2920; J3380; J7050

== ENCOUNTER 2018-07-15 13:56 | Outpatient (CLI) | payer MEDICARE, BC ==
[~2018-07-15] VITALS: Ht 154.9 cm; Wt 59.0 kg
[2018-07-15 14:24] LABS: BASO # 0.1 (0.0-0.2); BASO % 1.2 % (0.0-2.0); EOS # 0.5 (0.0-0.7); EOS % 5.6 % (0-4.0); GRAN % 61.6 % (42.2-75.2); HEMATOCRIT 38.3 % (37.0-47.0); HEMOGLOBIN 12.7 g/dl (12.5-16.0); LYMPH % 24.4 % (20.0-51.0); MEAN CELL VOLUME 88 fl (80.0-100.0); MEAN CORPUSCULAR HEMOGLOBIN 29 pg (27.0-31.0); MEAN CORPUSCULAR HGB CONC 33 g/dl (33.0-37.0); MEAN PLATELET VOLUME 9.7 fl (7.4-10.4); MONO # 0.6 (0.1-0.6); MONO % 7.1 % (1.7-9.3); PLATELET COUNT 280 K/mm3 (130-400); RED BLOOD COUNT 4.36 M/mm3 (4.10-5.30); REDCELL DISTRIBUTION WIDTH-CV 14.1 % (11.5-14.5)
[2018-07-15 14:28] VITALS: BP 139/60; PULSE 64; TEMP 97.3
[2018-07-15 14:30] LABS: ALBUMIN 3.4 gm/dL (3.5-5.0); BILIRUBIN,TOTAL 0.4 mg/dL (0.0-1.0); CALCIUM 9.3 mg/dL (8.4-10.2); CREATININE, serum 0.71 mg/dL (0.52-1.25); TOTAL PROTEIN 6.4 gm/dL (6.4-8.2)
== END 2018-07-15 16:18 | disposition home or self-care (01) ==
LOC: EUO 13:56
PROVIDERS: Family Medicine
DX: K50.90 Crohn's disease, unspecified, without complications (principal); Z79.899 Other long term (current) drug therapy
CPT/HCPCS: J2920; J3380; J7050

== ENCOUNTER 2018-08-26 11:00 | Outpatient (CLI) | payer MEDICARE, BC ==
[~2018-08-26] VITALS: Ht 154.9 cm; Wt 68.6 kg
[2018-08-26 11:40] LABS: BASO # 0.1 (0.0-0.2); BASO % 1.1 % (0.0-2.0); EOS # 0.4 (0.0-0.7); EOS % 4.9 % (0-4.0); GRAN # 4.8 (1.4-6.5); GRAN % 64.9 % (42.2-75.2); HEMATOCRIT 39.9 % (37.0-47.0); LYMPH # 1.6 (1.2-3.4); LYMPH % 21.4 % (20.0-51.0); MEAN CELL VOLUME 89 fl (80.0-100.0); MEAN CORPUSCULAR HEMOGLOBIN 29 pg (27.0-31.0); MEAN CORPUSCULAR HGB CONC 33 g/dl (33.0-37.0); MEAN PLATELET VOLUME 9.7 fl (7.4-10.4); MONO # 0.5 (0.1-0.6); MONO % 7.3 % (1.7-9.3); PLATELET COUNT 282 K/mm3 (130-400); RED BLOOD COUNT 4.48 M/mm3 (4.10-5.30); REDCELL DISTRIBUTION WIDTH-CV 13.6 % (11.5-14.5)
[2018-08-26 11:52] LABS: ALBUMIN 3.6 gm/dL (3.5-5.0); BILIRUBIN,TOTAL 0.4 mg/dL (0.0-1.0); CALCIUM 9.5 mg/dL (8.4-10.2); CREATININE, serum 0.75 mg/dL (0.52-1.25); POTASSIUM 3.9 mmol/L (3.4-5.0); TOTAL PROTEIN 6.3 gm/dL (6.4-8.2)
[2018-08-26 12:56] VITALS: BP 136/63; PULSE 61; TEMP 97.6
[2018-08-26 13:10] VITALS: BP 135/71; PULSE 62
== END 2018-08-26 13:24 | disposition home or self-care (01) ==
LOC: EUO 11:00
PROVIDERS: Family Medicine
DX: K50.90 Crohn's disease, unspecified, without complications (principal); Z79.899 Other long term (current) drug therapy
CPT/HCPCS: J2920; J3380; J7050

== ENCOUNTER 2018-10-07 13:03 | Outpatient (CLI) | payer MEDICARE, BC ==
[~2018-10-07] VITALS: Ht 154.9 cm; Wt 59.8 kg
[2018-10-07 13:51] LABS: BASO # 0.1 (0.0-0.2); BASO % 1.3 % (0.0-2.0); EOS # 0.4 (0.0-0.7); EOS % 4.9 % (0-4.0); GRAN # 5.2 (1.4-6.5); GRAN % 66.6 % (42.2-75.2); HEMATOCRIT 37.3 % (37.0-47.0); HEMOGLOBIN 12.1 g/dl (12.5-16.0); LYMPH # 1.5 (1.2-3.4); LYMPH % 19.7 % (20.0-51.0); MEAN CELL VOLUME 90 fl (80.0-100.0); MEAN CORPUSCULAR HEMOGLOBIN 29 pg (27.0-31.0); MEAN CORPUSCULAR HGB CONC 32 g/dl (33.0-37.0); MEAN PLATELET VOLUME 9.9 fl (7.4-10.4); MONO # 0.6 (0.1-0.6); MONO % 7.2 % (1.7-9.3); PLATELET COUNT 283 K/mm3 (130-400); RED BLOOD COUNT 4.15 M/mm3 (4.10-5.30); REDCELL DISTRIBUTION WIDTH-CV 13.8 % (11.5-14.5)
[2018-10-07 14:00] VITALS: BP 132/57; PULSE 74; TEMP 98.6
[2018-10-07 14:00] LABS: ALBUMIN 3.4 gm/dL (3.5-5.0); BILIRUBIN,TOTAL 0.2 mg/dL (0.0-1.0); CALCIUM 9.1 mg/dL (8.4-10.2); CREATININE, serum 0.76 mg/dL (0.52-1.25); POTASSIUM 4.3 mmol/L (3.4-5.0); TOTAL PROTEIN 6.1 gm/dL (6.4-8.2)
== END 2018-10-07 17:00 | disposition home or self-care (01) ==
LOC: EUO 13:03
PROVIDERS: Family Medicine
DX: K50.90 Crohn's disease, unspecified, without complications (principal); Z79.899 Other long term (current) drug therapy
CPT/HCPCS: J2920; J3380; J7050

== ENCOUNTER 2018-11-18 13:58 | Outpatient (CLI) | payer MEDICARE, BC ==
[~2018-11-18] VITALS: Ht 154.9 cm; Wt 60.0 kg
[2018-11-18 15:11] LABS: BASO # 0.1 (0.0-0.2); BASO % 1.5 % (0.0-2.0); EOS # 0.8 (0.0-0.7); EOS % 9.3 % (0-4.0); GRAN # 4.9 (1.4-6.5); GRAN % 54.8 % (42.2-75.2); HEMATOCRIT 38.7 % (37.0-47.0); HEMOGLOBIN 12.7 g/dl (12.5-16.0); LYMPH # 2.3 (1.2-3.4); LYMPH % 25.8 % (20.0-51.0); MEAN CELL VOLUME 90 fl (80.0-100.0); MEAN CORPUSCULAR HEMOGLOBIN 29 pg (27.0-31.0); MEAN CORPUSCULAR HGB CONC 33 g/dl (33.0-37.0); MEAN PLATELET VOLUME 10.8 fl (7.4-10.4); MONO # 0.8 (0.1-0.6); MONO % 8.4 % (1.7-9.3); PLATELET COUNT 164 K/mm3 (130-400); RED BLOOD COUNT 4.32 M/mm3 (4.10-5.30); REDCELL DISTRIBUTION WIDTH-CV 13.8 % (11.5-14.5)
[2018-11-18 15:15] LABS: ALBUMIN 3.2 gm/dL (3.5-5.0); BILIRUBIN,TOTAL 0.3 mg/dL (0.0-1.0); CALCIUM 9.6 mg/dL (8.4-10.2); CREATININE, serum 0.75 mg/dL (0.52-1.25); POTASSIUM 4.5 mmol/L (3.4-5.0)
[2018-11-18 18:50] VITALS: BP 128/73; PULSE 64; TEMP 97.9
== END 2018-11-18 16:00 | disposition home or self-care (01) ==
LOC: EUO 13:58
PROVIDERS: Family Medicine
DX: K50.90 Crohn's disease, unspecified, without complications (principal); Z79.899 Other long term (current) drug therapy
CPT/HCPCS: J2920; J3380; J7050

== ENCOUNTER → 2019-04-06 | Outpatient (CLI) | payer MEDICARE, BC | LOC: MC.RAD 16:08 | DX: Z12.31 Encounter for screening mammogram for malignant neoplasm of breast (principal) ==

== ENCOUNTER → 2021-06-11 | Outpatient (CLI) | payer MEDICARE, BC | LOC: MC.RAD 06-01 13:15 | DX: Z12.31 Encounter for screening mammogram for malignant neoplasm of breast (principal) ==